=== PATIENT | male | born 1975 | race Hispanic/Latino ===

== ENCOUNTER 2017-11-27 12:27 | Observation (INO) | payer OTHER, MEDICAID, SELFPAY ==
[2017-11-27] VITALS (7 sets, daily range): BP systolic 102–116; BP diastolic 61–72; PULSE 62–99; RESP 14–18; TEMP 36.6–37.1; O2SAT 96–100; BMI 22.0; BMI 22.1; BMI 22.4
--- NOTE | 2017-11-27 12:54 | RAD_ITS ---
STUDY: X-RAY CHEST REASON FOR EXAM: Male, 42 years old. Neck pain and upper extremity pain. TECHNIQUE: Single AP portable view of the chest. COMPARISON: None. FINDINGS: EKG electrodes are seen. The lungs are clear and expanded. Scattered calcified granulomas. There is no demonstrated pleural abnormality. Normal size heart. Normal mediastinum and landen. Normal visualized pulmonary arteries. Normal visualized aortic arch and descending thoracic aorta. Normal visualized thoracic spine. Normal visualized ribs, clavicles, and shoulders. There is no demonstrated abnormality of the visualized soft tissue structures of the upper abdomen. RAD/Chest 1 View (Portable) IMPRESSION: Normal x-ray examination of the chest. Electronically Signed: Mike Aguero MD at 13:33 EDT Tel [phone], Service support ,
--- NOTE | 2017-11-27 12:54 | CT_ITS ---
STUDY: CT BRAIN WITHOUT CONTRAST REASON FOR EXAM: Male, 42 years old. Dizziness, neck pain and hypotensive. Nausea and vomiting. RADIATION DOSAGE (If Supplied By Facility): CTDIvol = ( 60.81 ) mGy, DLP = ( 1044.28 ) mGycm TECHNIQUE: Transaxial CT imaging of the brain was performed without administration of intravenous contrast material. Individualized dose optimization techniques were used for this CT. COMPARISON: None. FINDINGS: Normal soft tissue structures. Normal calvarium. Normal size ventricles and extra-axial spaces for the patient's age. Normal white matter tracts of the cerebral hemispheres. Normal basal ganglia and thalami. Normal brainstem. Normal cerebellum. There is no intracranial hemorrhage. There are no findings of an acute ischemic infarction. Normal visualized paranasal sinuses. CT/Brain/Head without Contrast IMPRESSION: Normal unenhanced CT scan of the brain. Electronically Signed: Mike Aguero MD at 13:44 EDT Tel [phone], Service support ,
--- NOTE | 2017-11-27 12:54 | EKG12_ITS ---
Test Reason : DIZZINESS Blood Pressure : / mmHG Vent. Rate : 086 BPM Atrial Rate : 086 BPM P-R Int : 182 ms QRS Dur : 080 ms QT Int : 350 ms P-R-T Axes : 043 052 038 degrees QTc Int : 418 ms Normal sinus rhythm Normal ECG Confirmed by JAMEY POST ([id number]), tape editor BRENDAN REEVES ([id number]) on 12/01/2017 1:40:39 PM Referred By: KASEY Confirmed By:JAMEY POST
[2017-11-27] MEDS: 0.9% Normal Saline 1,000 ML 1000 ML IV (13:11)
[2017-11-27 13:15] LABS: Absolute Neutrophil Count 5.1 X10^3/uL (2.0-7.7); Basophil# 0.03 X10^3/uL; Basophil% 0.4 % (0-1); Eosinophils% 2.6 % (0-5); Hematocrit 44.1 % (40-54); Hemoglobin 15.1 g/dl (13.0-16.5); Lymphocyte % 18.5 % (19-41); Mean Corp Hgb Conc 34.2 g/gl (32-36); Mean Corpuscular Hgb 28.1 pg (27.0-32.0); Mean Corpuscular Volume 82.1 fL (80-94); Mean Platelet Vol. 11.5 fl (6.2-12.0); Monocyte# 0.77 X10^3/uL; Monocyte% 10.2 % (0-10); Neutrophil # 5.13 X10^3/uL (2.7-7.7); Neutrophil % 67.6 % (47-70); POSITIVE COUNT NO; POSITIVE DIFFERENTIAL NO; POSITIVE MORPHOLOGY NO; Platelet Count 274 K/mm3 (150-450); RBC Distribution Width CV 13.3 % (11.6-14.6); RBC Distribution Width SD 39.7 fl (35.1-43.9); Red Blood Count 5.37 M/mm3 (4.6-6.2); White Blood Count 7.6 K/mm3 (4.4-11.0)
[2017-11-27 13:34] LABS: ALB/GLOB Ratio 0.9 RATIO (0.9-2.4); AST(SGOT) 11 U/L (15-37); Alanine Aminotransfer ALT/SGPT 26 U/L (16-61); Albumin, Serum 3.9 g/dL (3.2-5.0); Alkaline Phosphatase 138 U/L (45-117); Anion Gap 8 (5-15); BUN 36 mg/dL (7-18); Calcium,Total 9.3 mg/dL (8.5-10.1); Chloride 91 mmol/L (98-107); EST Glomerular Filtration Rate 32 mL/min (>60); Est Glom Filt Rate - Afr Amer 39 mL/min (>60); Estimated Creatinine Clearance 38.08 ml/min; Globulin 4.5 g/dL (2.2-4.2); Glucose 327 mg/dL (74-106); Lipase 82 U/L (73-393); Potassium 4.3 mmol/L (3.5-5.1); Protein, Total 8.4 g/dL (6.4-8.2); Sodium Level 128 mmol/L (136-145)
[2017-11-27] MEDS: 0.9% Normal Saline 1,000 ML 150 ML IV ×2 (14:16→17:22)
--- NOTE | 2017-11-27 14:51 | ED.DCSUM_ITS ---
- ER Visit Summary Date of Service: 11/27/17 Chief Complaint: [Dizziness and vomiting] History of Present Illness: The patient is a 42 M [presents the emergency department with multiple complaints. Patient states that he has been dizzy for about 3 weeks. Patient describes vertiginous-like symptoms that caused him to almost black out. Patient states the symptoms can be with standing or at rest. He denies any chest pain or shortness of breath when this is happening. He denies any palpitations. Patient was seen at his primary care physician's office today and noted to be somewhat hypotensive with systolics in the 90s and was referred to the emergency department. Patient also complaining of intermittent episodes of vomiting for several weeks where he vomits 1-2 times per day. He denies any diarrhea. Patient denies any abdominal pain. He denies any fever. Patient denies any falls or head injuries. Patient also describes pain in his neck and upper back that he has had for weeks. Patient states that he has had this pain for a long time and is been somewhat chronic but is more severe of late. Patient denies any pain radiating into his arms or weakness of the extremities.] Physical Examination: [HEENT-PERRLA, EOMI. Cranial nerves II through XII grossly intact. TMs clear. Mucous membranes slightly dry. No adenopathy. Cardiovascular-regular rate and rhythm without murmur or ectopy Lungs-clear to auscultation, chest wall stable without crepitus or subcu emphysema Abdomen-normoactive bowel sounds, soft, nontender, no rebound or rigidity, no peritoneal signs. Extremities-intact ?4, normal range of motion, normal pulses, atraumatic] Test Results: [EKG obtained on arrival shows sinus rhythm with a ventricular rate of 86 bpm with no acute ST segment changes noted. CBC with differential showed white count 7.6, hemoglobin 15, hematocrit 44, platelets 274. Chemistry showed a sodium of 128, potassium 4.3, chloride 91, CO2 29, glucose 327, BUN 36 and creatinine was 2.40. LFTs were unremarkable. Lipase was normal. Troponin was less than 0.015. CT scan of the brain without contrast was normal. And chest x-ray showed nothing acute. Orthostatic vital signs were negative.] Emergency Department Course and Treatment: [Patient received a liter normal same fluid bolus. Patient did have blood work that he showed me from September of this year at that time he had a normal sodium and a normal creatinine.] Treatment Plan: [Admit for hydration and further evaluation of his dizziness] Disposition: [Admit] Impression: [Dizziness Hyponatremia Renal insufficiency Dehydration Hypotension This note was generated with [employer] dictation software. It may contain incorrect words, spelling, and punctuation that were not noted in review of the chart prior to signing ED Disposition - Plan for ED Patient: Chief Complaint: General Illness Referrals: Benedicto Damon MD [Primary Care Provider] -
--- NOTE | 2017-11-27 15:46 | PCM.HP.STD ---
Problem List (1) Hypertension Status: Chronic (2) Type 1 diabetes mellitus Status: Chronic (3) Hyperlipidemia Status: Chronic (4) Depression Status: Chronic (5) Fibromyalgia Status: Chronic History of Present Illness Date of Admission: 11/27/17 Chief Complaint: Dizziness The patient is a 42 year old M who presents to the emergency room with dizziness and ongoing neck pain. Patient states he has had dizziness for approximately 3 weeks with intermittent nausea, vomiting. Patient also complains of neck pain which he states he has had for a long time but seems to be worse in severity and over the past few weeks. He states his dizziness seems to be worse with movement of his neck/head up and down. Denies headache. Denies changes in vision. Patient denies any injury. He states pain does radiate to his left shoulder. Patient states he has chronic nephropathy due to type 1 diabetes mellitus. She denies any new numbness, tingling. Denies focal weakness. Patient denies chest pain, shortness of breath. Denies recent illness. Denies diarrhea. Patient's past medical history includes type 1 diabetes mellitus, hypertension, inflammatory arthritis/fibromyalgia, depression, hyperlipidemia. Past Medical History Past Medical History (Chronic Problems): Chronic Problems Hypertension (Chronic) Type 1 diabetes mellitus (Chronic) Hyperlipidemia (Chronic) Depression (Chronic) Fibromyalgia (Chronic) Allergies No Known Allergies Allergy (Verified 11/27/17 12:28) Home Medications: Ambulatory Orders Medication Instructions Recorded Lisinopril [Zestril] 40 mg PO DAILY 01/02/14 Hydrochlorothiazide 25 mg PO DAILY 11/05/14 Albuterol Inhaler [Ventolin Hfa 2 puff INHALATION Q4H PRN PRN 11/27/17 (SP)] Aspirin [Adult Low Dose Aspirin EC] 81 mg PO DAILY 11/27/17 Atorvastatin Calcium 80 mg PO QHS 11/27/17 Cyclobenzaprine HCl 15 mg PO DAILY 11/27/17 Fluoxetine [Prozac] 20 mg PO BID 11/27/17 Gabapentin [Neurontin] 1,200 mg PO TIDCM 11/27/17 Insulin Glargine [Lantus (BKC)] 40 units SC ACHS 11/27/17 Insulin Lispro [Humalog] 0 unit SC DAILY 11/27/17 Surgical History: no surgical history Psychiatric History: Depression Lives: Spouse/ Significant Other Smoking Status: Light Smoker (<10/day) Tobacco Use: Cigarettes Alcohol: Occasional Drugs: None - *Family History Maternal History Items: Hypertension, - - Liver disease Paternal History Items: Heart Disease Review of Systems Constitutional: Reports: Weakness. Denies: Chills, Fever, Weight Change HEENT: Denies: Head Aches, Sinus Congestion, Sinus Drainage Cardiovascular: Reports: Light Headedness. Denies: Chest Pain, Edema, Palpitations, Syncope Respiratory: Denies: Cough, Shortness of breath at rest, Sputum production Gastrointestinal: Reports: Nausea, Vomiting. Denies: Abdominal Pain Genitourinary: Denies: Dysuria Musculoskeletal: Reports: Neck Pain, Shoulder Pain - Left Skin: Denies: Rash, Wounds Neurological: Reports: - - Chronic nephropathy. Denies: Focal weakness Psychiatric: Reports: Depression Hematologic/ Lymphatic: Denies: Easy Bruising, Easy Bleeding VTE Information - Inpt Only VTE Present on Admission: No VTE Mechan Device Prophylaxis: SCD's VTE Pharm Prophylaxis ordered?: No Reason prophylaxis not ordered:: Treatment Not Indicated - Physical Exam General: Alert, Oriented x3, Cooperative, No apparent distress HEENT: Atraumatic, PERRLA, EOMI, Normocephalic Oral: Dry Mucosa Neck: Supple, No JVD, Negative Carotid Bruits Lungs: Clear to auscultation, Diminished Cardiovascular: Regular rate, Regular Rhythm, Normal S1, Normal S2, No murmurs Abdomen: Bowel Sounds Present, Soft, Non Tender, Non-Distended Extremities: No clubbing, No cyanosis, No edema, Capillary Refill Less than 3 Seconds Skin: No rashes, No breakdown Musculoskeletal: No Tenderness to Palpation of Joints or Extremities Neurological: Cranial nerves II-XII grossly intact, Neuro grossly intact Psych/Mental Status: Normal Affect, Appropriate Vital Signs Temp Pulse Resp BP Pulse Ox 98.7 F 73 15 103/67 100 11/27/17 12:28 11/27/17 14:28 11/27/17 14:28 11/27/17 14:28 11/27/17 14:28 Assessment/Plan 1. Acute kidney injury-suspected secondary to dehydration as a result of recent nausea/vomiting and HCTZ. Associated dizziness. Brain CT on admission unremarkable. HCTZ on hold. IV fluids. Trend BMP. Orthostatic vitals negative. Zofran as needed for nausea. 2. Hyponatremia-suspected secondary to HCTZ. HCTZ on hold. IV fluids. Trend BMP. 3. Intractable neck pain-patient denies neck stiffness, headache. Patient states he has had imaging in the past. Attempt to obtain records. 4. Hypertension-stable, continue home lisinopril regimen. 5. Hyperlipidemia-continue statin. 6. Type 1 diabetes [id number] before meals at bedtime with sliding scale insulin. Continue home Lantus regimen. 7. Inflammatory arthritis/fibromyalgia-continue home cyclobenzaprine and gabapentin regimen. 8. Depression-continue home Prozac regimen. 9. Tobacco dependence-encourage smoking cessation. Nicotine replacement patch if desired. DVT prophylaxis- SCDs This patient was seen by MARTÍN Clarke under the supervision of Dr. Thompson.
--- NOTE | 2017-11-27 15:49 | HP.PCM_ITS ---
Addendum entered and electronically signed by MARTÍN Clarke 11/27/17 17:05: Code Visit CT of cervical spine completed 05/24/2017 at [facility]. Findings showed no acute fracture or subluxation of the cervical spine. The vertebral body heights were preserved. The vertebral elements are in anatomic alignment. Disc spaces preserved. No significant spinal canal or neural foraminal stenosis. Vertebral soft tissues unremarkable. Original Note: Problem List (1) Hypertension Status: Chronic (2) Type 1 diabetes mellitus Status: Chronic (3) Hyperlipidemia Status: Chronic (4) Depression Status: Chronic (5) Fibromyalgia Status: Chronic History of Present Illness Date of Admission: 11/27/17 Chief Complaint: Dizziness The patient is a 42 year old M who presents to the emergency room with dizziness and ongoing neck pain. Patient states he has had dizziness for approximately 3 weeks with intermittent nausea, vomiting. Patient also complains of neck pain which he states he has had for a long time but seems to be worse in severity and over the past few weeks. He states his dizziness seems to be worse with movement of his neck/head up and down. Denies headache. Denies changes in vision. Patient denies any injury. He states pain does radiate to his left shoulder. Patient states he has chronic nephropathy due to type 1 diabetes mellitus. She denies any new numbness, tingling. Denies focal weakness. Patient denies chest pain, shortness of breath. Denies recent illness. Denies diarrhea. Patient's past medical history includes type 1 diabetes mellitus, hypertension, inflammatory arthritis/fibromyalgia, depression , hyperlipidemia. Past Medical History Past Medical History (Chronic Problems): Chronic Problems Hypertension (Chronic) Type 1 diabetes mellitus (Chronic) Hyperlipidemia (Chronic) Depression (Chronic) Fibromyalgia (Chronic) Allergies No Known Allergies Allergy (Verified 11/27/17 12:28) Home Medications: Ambulatory Orders Medication Instructions Recorded Lisinopril [Zestril] 40 mg PO DAILY 01/02/14 Hydrochlorothiazide 25 mg PO DAILY 11/05/14 Albuterol Inhaler [Ventolin Hfa 2 puff INHALATION Q4H PRN PRN 11/27/17 (SP)] Aspirin [Adult Low Dose Aspirin EC] 81 mg PO DAILY 11/27/17 Atorvastatin Calcium 80 mg PO QHS 11/27/17 Cyclobenzaprine HCl 15 mg PO DAILY 11/27/17 Fluoxetine [Prozac] 20 mg PO BID 11/27/17 Gabapentin [Neurontin] 1,200 mg PO TIDCM 11/27/17 Insulin Glargine [Lantus (BKC)] 40 units SC ACHS 11/27/17 Insulin Lispro [Humalog] 0 unit SC DAILY 11/27/17 Surgical History: no surgical history Psychiatric History: Depression Lives: Spouse/ Significant Other Smoking Status: Light Smoker (<10/day) Tobacco Use: Cigarettes Alcohol: Occasional Drugs: None - *Family History Maternal History Items: Hypertension, - - Liver disease Paternal History Items: Heart Disease Review of Systems Constitutional: Reports: Weakness. Denies: Chills, Fever, Weight Change HEENT: Denies: Head Aches, Sinus Congestion, Sinus Drainage Cardiovascular: Reports: Light Headedness. Denies: Chest Pain, Edema, Palpitations, Syncope Respiratory: Denies: Cough, Shortness of breath at rest, Sputum production Gastrointestinal: Reports: Nausea, Vomiting. Denies: Abdominal Pain Genitourinary: Denies: Dysuria Musculoskeletal: Reports: Neck Pain, Shoulder Pain - Left Skin: Denies: Rash, Wounds Neurological: Reports: - - Chronic nephropathy. Denies: Focal weakness Psychiatric: Reports: Depression Hematologic/ Lymphatic: Denies: Easy Bruising, Easy Bleeding VTE Information - Inpt Only VTE Present on Admission: No VTE Mechan Device Prophylaxis: SCD's VTE Pharm Prophylaxis ordered?: No Reason prophylaxis not ordered:: Treatment Not Indicated - Physical Exam General: Alert, Oriented x3, Cooperative, No apparent distress HEENT: Atraumatic, PERRLA, EOMI, Normocephalic Oral: Dry Mucosa Neck: Supple, No JVD, Negative Carotid Bruits Lungs: Clear to auscultation, Diminished Cardiovascular: Regular rate, Regular Rhythm, Normal S1, Normal S2, No murmurs Abdomen: Bowel Sounds Present, Soft, Non Tender, Non-Distended Extremities: No clubbing, No cyanosis, No edema, Capillary Refill Less than 3 Seconds Skin: No rashes, No breakdown Musculoskeletal: No Tenderness to Palpation of Joints or Extremities Neurological: Cranial nerves II-XII grossly intact, Neuro grossly intact Psych/Mental Status: Normal Affect, Appropriate Vital Signs Temp Pulse Resp BP Pulse Ox 98.7 F 73 15 103/67 100 11/27/17 12:28 11/27/17 14:28 11/27/17 14:28 11/27/17 14:28 11/27/17 14:28 Assessment/Plan 1. Acute kidney injury-suspected secondary to dehydration as a result of recent nausea/vomiting and HCTZ. Associated dizziness. Brain CT on admission unremarkable. HCTZ on hold. IV fluids. Trend BMP. Orthostatic vitals negative. Zofran as needed for nausea. 2. Hyponatremia-suspected secondary to HCTZ. HCTZ on hold. IV fluids. Trend BMP. 3. Intractable neck pain-patient denies neck stiffness, headache. Patient states he has had imaging in the past. Attempt to obtain records. 4. Hypertension-stable, continue home lisinopril regimen. 5. Hyperlipidemia-continue statin. 6. Type 1 diabetes [id number] before meals at bedtime with sliding scale insulin. Continue home Lantus regimen. 7. Inflammatory arthritis/fibromyalgia-continue home cyclobenzaprine and gabapentin regimen. 8. Depression-continue home Prozac regimen. 9. Tobacco dependence-encourage smoking cessation. Nicotine replacement patch if desired. DVT prophylaxis- SCDs This patient was seen by MARTÍN Clarke under the supervision of Dr. Thompson.
[2017-11-27 16:35] LABS: Bedside Glucose 145 mg/dL (70-110)
[2017-11-27] MEDS: Gabapentin 600 MG Tablet 1200 MG PO (17:22)
[2017-11-27] MEDS: Atorvastatin Calcium 80 MG Tablet PO (22:28)
[2017-11-27] MEDS: FLUoxetine 20 MG Capsule PO (22:28)
[2017-11-27] MEDS: Acetaminophen 325 MG Tablet 650 MG PO (22:32)
[2017-11-27] MEDS: Insulin Lispro 100 UNIT/ML INSULN.PEN SC (22:34)
[2017-11-27 22:40] LABS: Bedside Glucose 192 mg/dL (70-110)
[2017-11-28] MEDS: 0.9% Normal Saline 1,000 ML 150 ML IV ×2 (00:51→05:25)
[2017-11-28 04:00] VITALS: BP 112/70; PULSE 103; RESP 16; TEMP 36.8; O2SAT 98
[2017-11-28 04:07] VITALS: PULSE 67
[2017-11-28] MEDS: Acetaminophen 325 MG Tablet 650 MG PO (05:38)
[2017-11-28 06:25] LABS: Bedside Glucose 177 mg/dL (70-110)
[2017-11-28 07:34] VITALS: PULSE 80
[2017-11-28 08:36] LABS: Anion Gap 3 (5-15); BUN 28 mg/dL (7-18); BUN/Creat Ratio 18.4 RATIO (10-20); Calcium,Total 8.4 mg/dL (8.5-10.1); Chloride 105 mmol/L (98-107); Creatinine, Serum 1.52 mg/dL (0.70-1.30); EST Glomerular Filtration Rate 54 mL/min (>60); Est Glom Filt Rate - Afr Amer 66 mL/min (>60); Estimated Creatinine Clearance 61.22 ml/min; Glucose 146 mg/dL (74-106); Potassium 4.1 mmol/L (3.5-5.1); Sodium Level 138 mmol/L (136-145)
[2017-11-28 09:36] VITALS: BP 126/80; PULSE 72; RESP 16; TEMP 36.5; O2SAT 95
[2017-11-28] MEDS: Aspirin E.C. 81 MG Tablet PO (09:38)
[2017-11-28] MEDS: Lisinopril 40 MG Tablet PO (09:38)
[2017-11-28] MEDS: CYCLOBENZAPRINE HCL 5 MG TABLET PO (09:38)
[2017-11-28] MEDS: Gabapentin 600 MG Tablet 1200 MG PO (09:38)
--- NOTE | 2017-11-28 09:50 | PCM.DC ---
- Discharge Diagnoses Current Active Problems: Current Active and Chronic Problems Hypertension (Chronic) Type 1 diabetes mellitus (Chronic) Hyperlipidemia (Chronic) Depression (Chronic) Fibromyalgia (Chronic) You will use the following diet at home:: No restrictions Discharge Activity: Return to Normal Activity Call your doctor if you observe: Shortness of breath, Dizziness, Fainting spells, Chest pain Additional Instructions: Recommend follow-up with your metal finish inspector regarding ongoing neck pain. Your blood pressure medication, HCTZ was discontinued. Do not recommend restarting this medication. Your blood pressure has been stable during admission on lisinopril. Recommend continuing to monitor your blood pressure daily at discharge and bring findings to follow-up appointment with your primary care physician. You will need repeat blood work (BMP) in 3 days to check your kidney function. This will be followed by her primary care physician. Allergies/Adverse Reactions: Allergies No Known Allergies Allergy (Verified 11/27/17 12:28) Medications to take at Discharge Lisinopril [Zestril] 40 mg PO DAILY 01/02/14 Albuterol Inhaler [Ventolin Hfa] 2 puff INHALATION Q4H PRN PRN 11/27/17 Aspirin [Adult Low Dose Aspirin EC] 81 mg PO DAILY 11/27/17 Atorvastatin Calcium 80 mg PO QHS 11/27/17 Cyclobenzaprine HCl 5 mg PO DAILY 11/27/17 Cyclobenzaprine HCl 10 mg PO QHS 11/27/17 Fluoxetine [Prozac] 20 mg PO BID 11/27/17 Gabapentin [Neurontin] 1,200 mg PO TIDCM 11/27/17 Insulin Glargine [Lantus SoloStar Pen] 40 units SC DAILY 11/27/17 Insulin Lispro [Humalog] 4 unit SC TIDCM 11/27/17 Primary Care Physician: Benedicto Damon MD [Primary Care Provider] - Please follow up with your Primary Care Physician in: 1 Week Test Results: Test results from this visit will be discussed in further detail at your follow-up appointment, if applicable. Please Follow Up With: Marine Propulsion Technician When: 1 Week Proposed Discharge Date: 11/28/17
--- NOTE | 2017-11-28 09:55 | PCM.DC.SUM ---
<Chelsie Olson - Last Filed: 11/28/17 09:59> Discharge Date and Diagnosis Date of Admission: 11/27/17 Date of Discharge: 11/28/17 - Primary Discharge Diagnosis 1. Acute kidney injury 2. Mild dehydration 3. Hyponatremia secondary to HCTZ 4. Chronic neck pain - Secondary Discharge Diagnosis Chronic Problems Hypertension (Chronic) Type 1 diabetes mellitus (Chronic) Hyperlipidemia (Chronic) Depression (Chronic) Fibromyalgia (Chronic) Hospital Course and Treatment Imaging Results: Diagnostic Data Brain CT 11/27/17 12:54 IMPRESSION: Normal unenhanced CT scan of the brain. Electronically Signed: Mike Aguero MD at 13:44 EDT Tel [phone], Service support , Chest X-Ray 11/27/17 12:54 IMPRESSION: Normal x-ray examination of the chest. Electronically Signed: Mike Aguero MD at 13:33 EDT Tel [phone], Service support , Operations: None Procedures: None Summary of Care Provided: The patient is a 42 year old M admitted 11/27/2017 due to dizziness. Patient's past medical history includes type 1 diabetes mellitus, hypertension, inflammatory arthritis/fibromyalgia, depression, hyperlipidemia. 1. Acute kidney injury-suspected secondary to dehydration as a result of recent nausea/vomiting and HCTZ. Associated dizziness. Brain CT on admission unremarkable. Patient received IV fluids during admission. Creatinine improved. Orthostatic vitals negative. Patient denies further dizziness. HCTZ will be discontinued at discharge. Repeat BMP in 3 days. Follow-up with primary care physician in 1 week. 2. Hyponatremia-resolved. Suspected secondary to HCTZ. HCTZ discontinued. 3. Chronic neck pain-patient denies neck stiffness, headache. CT of cervical spine completed 05/24/2017 at [facility]. Findings showed no acute fracture or subluxation of the cervical spine. The vertebral body heights were preserved. The vertebral elements are in anatomic alignment. Disc spaces preserved. No significant spinal canal or neural foraminal stenosis. Vertebral soft tissues unremarkable. Patient currently follows with podiatric aide for inflammatory arthritis, fibromyalgia. Recommend follow-up with rheumatology at discharge for further recommendations regarding chronic neck pain. 4. Hypertension-stable, continue home lisinopril regimen. 5. Hyperlipidemia-continue statin. 6. Type 1 diabetes mellitus-continue home insulin regimen. 7. Inflammatory arthritis/fibromyalgia-continue home cyclobenzaprine and gabapentin regimen. 8. Depression-continue home Prozac regimen. 9. Tobacco dependence-encourage smoking cessation. General: Alert, Oriented x3, Cooperative, No apparent distress HEENT: Atraumatic, PERRLA, EOMI, Normocephalic Oral: Dry Mucosa Neck: Supple, No JVD, Negative Carotid Bruits Lungs: Clear to auscultation, Diminished Cardiovascular: Regular rate, Regular Rhythm, Normal S1, Normal S2, No murmurs Abdomen: Bowel Sounds Present, Soft, Non Tender, Non-Distended Extremities: No clubbing, No cyanosis, No edema, Capillary Refill Less than 3 Seconds Skin: No rashes, No breakdown Musculoskeletal: No Tenderness to Palpation of Joints or Extremities Neurological: Cranial nerves II-XII grossly intact, Neuro grossly intact Psych/Mental Status: Normal Affect, Appropriate Patient seen exam prior to discharge. Physical assessment as noted above. Patient stable for discharge home with the follow-up recommendations as noted above. This patient was seen by MARTÍN Clarke under the supervision of Dr. Amos. Discharge Diet: No Restrictions Discharge Activity: Return to Normal Activity Call your doctor if you observe: Shortness of breath, Dizziness, Fainting spells, Chest pain Home Medications: Medications to take at Discharge Lisinopril [Zestril] 40 mg PO DAILY 01/02/14 Albuterol Inhaler [Ventolin Hfa] 2 puff INHALATION Q4H PRN PRN 11/27/17 Aspirin [Adult Low Dose Aspirin EC] 81 mg PO DAILY 11/27/17 Atorvastatin Calcium 80 mg PO QHS 11/27/17 Cyclobenzaprine HCl 5 mg PO DAILY 11/27/17 Cyclobenzaprine HCl 10 mg PO QHS 11/27/17 Fluoxetine [Prozac] 20 mg PO BID 11/27/17 Gabapentin [Neurontin] 1,200 mg PO TIDCM 11/27/17 Insulin Glargine [Lantus SoloStar Pen] 40 units SC DAILY 11/27/17 Insulin Lispro [Humalog] 4 unit SC TIDCM 11/27/17 Primary Care Physician: Benedicto Damon MD [Primary Care Provider] - Please follow up with your Primary Care Physician in: 1 Week Please Follow Up With: Sports Writer When: 1 Week Disposition: Home Minutes spent on discharge:: 35 Patient Condition:: Stable Medical Necessity - Tobacco Use Smoking Status: Light Smoker (<10/day) Tobacco Use: Cigarettes Meaningful Use Info Meaningful Use Diagnoses (Choose all that apply): None applicable <Rhonda Amos E - Last Filed: 11/28/17 11:28> Discharge Date and Diagnosis - Secondary Discharge Diagnosis Chronic Problems Hypertension (Chronic) Type 1 diabetes mellitus (Chronic) Hyperlipidemia (Chronic) Depression (Chronic) Fibromyalgia (Chronic) Hospital Course and Treatment Summary of Care Provided: Hospitalist note: Discharge summary above reviewed as well as physical examination and I agree with above discharge plan. Patient was admitted because of acute kidney injury secondary to dehydration and HCTZ. He presented to the emergency room because of 3 weeks history of dizziness. CT scan brain showed no acute findings. He was found to have serum creatinine of 2.40 on admission consistent with acute kidney injury which is attributed to nausea and vomiting as well as HCTZ. Patient was treated with IV fluids and his creatinine came down to 1.52 today. HCTZ was discontinued. Patient had chronic neck pain and headache in context of history of fibromyalgia. Reportedly, he had CT scan cervical spine in May, and that was without acute findings. He was found to have hyponatremia with admission sodium of 128 which is also attributed to HCTZ and with IV fluids with normal saline, sodium improved and it was 138 on the day of discharge. During this hospital stay, patient's blood pressure remained stable only on lisinopril. HCTZ discontinued. Patient discharged home in a stable medical condition, discharged on lisinopril for hypertension, continued on his other chronic home medications, HCTZ discontinued, order given to repeat BMP in 3 days, follow-up with PCP in 1 week and follow-up with rheumatology as scheduled. This note was generated with [employer] software. It may contain incorrect words, spelling, and punctuation that were not noted in checking the note before signing. Minutes spent on discharge:: 25 Patient Condition:: Stable Meaningful Use Info Meaningful Use Diagnoses (Choose all that apply): None applicable Code Visit OBSV E&M: 35183 Observation care discharge
--- NOTE | 2017-11-28 09:59 | DS.PCM_ITS ---
<Chelsie Olson - Last Filed: 11/28/17 09:59> Discharge Date and Diagnosis Date of Admission: 11/27/17 Date of Discharge: 11/28/17 - Primary Discharge Diagnosis 1. Acute kidney injury 2. Mild dehydration 3. Hyponatremia secondary to HCTZ 4. Chronic neck pain - Secondary Discharge Diagnosis Chronic Problems Hypertension (Chronic) Type 1 diabetes mellitus (Chronic) Hyperlipidemia (Chronic) Depression (Chronic) Fibromyalgia (Chronic) Hospital Course and Treatment Imaging Results: Diagnostic Data Brain CT 11/27/17 12:54 IMPRESSION: Normal unenhanced CT scan of the brain. Electronically Signed: Mike Aguero MD at 13:44 EDT Tel [phone], Service support , Chest X-Ray 11/27/17 12:54 IMPRESSION: Normal x-ray examination of the chest. Electronically Signed: Mike Aguero MD at 13:33 EDT Tel [phone], Service support , Operations: None Procedures: None Summary of Care Provided: The patient is a 42 year old M admitted 11/27/2017 due to dizziness. Patient's past medical history includes type 1 diabetes mellitus, hypertension, inflammatory arthritis/fibromyalgia, depression, hyperlipidemia. 1. Acute kidney injury-suspected secondary to dehydration as a result of recent nausea/vomiting and HCTZ. Associated dizziness. Brain CT on admission unremarkable. Patient received IV fluids during admission. Creatinine improved. Orthostatic vitals negative. Patient denies further dizziness. HCTZ will be discontinued at discharge. Repeat BMP in 3 days. Follow-up with primary care physician in 1 week. 2. Hyponatremia-resolved. Suspected secondary to HCTZ. HCTZ discontinued. 3. Chronic neck pain-patient denies neck stiffness, headache. CT of cervical spine completed 05/24/2017 at [facility]. Findings showed no acute fracture or subluxation of the cervical spine. The vertebral body heights were preserved. The vertebral elements are in anatomic alignment. Disc spaces preserved. No significant spinal canal or neural foraminal stenosis. Vertebral soft tissues unremarkable. Patient currently follows with conference director for inflammatory arthritis, fibromyalgia. Recommend follow-up with rheumatology at discharge for further recommendations regarding chronic neck pain. 4. Hypertension-stable, continue home lisinopril regimen. 5. Hyperlipidemia-continue statin. 6. Type 1 diabetes mellitus-continue home insulin regimen. 7. Inflammatory arthritis/fibromyalgia-continue home cyclobenzaprine and gabapentin regimen. 8. Depression-continue home Prozac regimen. 9. Tobacco dependence-encourage smoking cessation. General: Alert, Oriented x3, Cooperative, No apparent distress HEENT: Atraumatic, PERRLA, EOMI, Normocephalic Oral: Dry Mucosa Neck: Supple, No JVD, Negative Carotid Bruits Lungs: Clear to auscultation, Diminished Cardiovascular: Regular rate, Regular Rhythm, Normal S1, Normal S2, No murmurs Abdomen: Bowel Sounds Present, Soft, Non Tender, Non-Distended Extremities: No clubbing, No cyanosis, No edema, Capillary Refill Less than 3 Seconds Skin: No rashes, No breakdown Musculoskeletal: No Tenderness to Palpation of Joints or Extremities Neurological: Cranial nerves II-XII grossly intact, Neuro grossly intact Psych/Mental Status: Normal Affect, Appropriate Patient seen exam prior to discharge. Physical assessment as noted above. Patient stable for discharge home with the follow-up recommendations as noted above. This patient was seen by MARTÍN Clarke under the supervision of Dr. Amos. Discharge Diet: No Restrictions Discharge Activity: Return to Normal Activity Call your doctor if you observe: Shortness of breath, Dizziness, Fainting spells , Chest pain Home Medications: Medications to take at Discharge Lisinopril [Zestril] 40 mg PO DAILY 01/02/14 Albuterol Inhaler [Ventolin Hfa] 2 puff INHALATION Q4H PRN PRN 11/27/17 Aspirin [Adult Low Dose Aspirin EC] 81 mg PO DAILY 11/27/17 Atorvastatin Calcium 80 mg PO QHS 11/27/17 Cyclobenzaprine HCl 5 mg PO DAILY 11/27/17 Cyclobenzaprine HCl 10 mg PO QHS 11/27/17 Fluoxetine [Prozac] 20 mg PO BID 11/27/17 Gabapentin [Neurontin] 1,200 mg PO TIDCM 11/27/17 Insulin Glargine [Lantus SoloStar Pen] 40 units SC DAILY 11/27/17 Insulin Lispro [Humalog] 4 unit SC TIDCM 11/27/17 Primary Care Physician: Benedicto Damon MD [Primary Care Provider] - Please follow up with your Primary Care Physician in: 1 Week Please Follow Up With: Heddle Machine Operator When: 1 Week Disposition: Home Minutes spent on discharge:: 35 Patient Condition:: Stable Medical Necessity - Tobacco Use Smoking Status: Light Smoker (<10/day) Tobacco Use: Cigarettes Meaningful Use Info Meaningful Use Diagnoses (Choose all that apply): None applicable <Rhonda Amos E - Last Filed: 11/28/17 11:28> Discharge Date and Diagnosis - Secondary Discharge Diagnosis Chronic Problems Hypertension (Chronic) Type 1 diabetes mellitus (Chronic) Hyperlipidemia (Chronic) Depression (Chronic) Fibromyalgia (Chronic) Hospital Course and Treatment Summary of Care Provided: Hospitalist note: Discharge summary above reviewed as well as physical examination and I agree with above discharge plan. Patient was admitted because of acute kidney injury secondary to dehydration and HCTZ. He presented to the emergency room because of 3 weeks history of dizziness. CT scan brain showed no acute findings. He was found to have serum creatinine of 2.40 on admission consistent with acute kidney injury which is attributed to nausea and vomiting as well as HCTZ. Patient was treated with IV fluids and his creatinine came down to 1.52 today. HCTZ was discontinued. Patient had chronic neck pain and headache in context of history of fibromyalgia. Reportedly, he had CT scan cervical spine in May, and that was without acute findings. He was found to have hyponatremia with admission sodium of 128 which is also attributed to HCTZ and with IV fluids with normal saline, sodium improved and it was 138 on the day of discharge. During this hospital stay, patient's blood pressure remained stable only on lisinopril. HCTZ discontinued. Patient discharged home in a stable medical condition, discharged on lisinopril for hypertension, continued on his other chronic home medications, HCTZ discontinued, order given to repeat BMP in 3 days, follow-up with PCP in 1 week and follow-up with rheumatology as scheduled. This note was generated with [employer] software. It may contain incorrect words, spelling, and punctuation that were not noted in checking the note before signing. Minutes spent on discharge:: 25 Patient Condition:: Stable Meaningful Use Info Meaningful Use Diagnoses (Choose all that apply): None applicable Code Visit OBSV E&M: 51669 Observation care discharge
== END 2017-11-28 11:00 | disposition home or self-care (01) ==
LOC: ED 14:57 → MS2 15:18
PROVIDERS: Admitting Provider Internal Medicine; Emergency Provider Emergency Medicine; Family Provider Internal Medicine; PCP Internal Medicine; Visit Provider Hospitalist
DX: N17.9 Acute kidney failure, unspecified (principal); E86.0 Dehydration; E87.1 Hypo-osmolality and hyponatremia; M54.2 Cervicalgia; G89.29 Other chronic pain; E10.21 Type 1 diabetes mellitus with diabetic nephropathy; E78.5 Hyperlipidemia, unspecified; I10 Essential (primary) hypertension; F32.9 Major depressive disorder, single episode, unspecified; M79.7 Fibromyalgia; Z79.82 Long term (current) use of aspirin; Z79.899 Other long term (current) drug therapy; Z79.4 Long term (current) use of insulin; F17.210 Nicotine dependence, cigarettes, uncomplicated; M13.80 Other specified arthritis, unspecified site; J44.9 Chronic obstructive pulmonary disease, unspecified
CPT/HCPCS: 36415; 70450; 71045; 80048; 80053; 82962; 83690; 84484; 85025; 93005; 96360; 96361; 99218; 99284; J7030; A4216; G0378